=== PATIENT | male | born 1980 | race Caucasian/White ===

== ENCOUNTER 2020-09-07 19:02 | Emergency (ER) | payer SELFPAY ==
--- NOTE | 2020-09-07 19:27 | ER Document Report ---
ED Medical Screen (RME) - General Chief Complaint: Swallowed Foreign Body Stated Complaint: SWALLOWED FORIEGN BODY Time Seen by Provider: 09/07/20 19:24 Mode of Arrival: Ambulatory Information source: Patient Notes: HPI; 40-year-old presents to the emergency room stating that he was eating when his partial broke in half and he swallowed half of it. States the half that he swallowed the half that has the metal part that attaches to his partial. He is not having difficulty breathing or swallowing. No foreign body sensation in his throat. Handling his secretions. Talking in full sentences. PE: Alert and oriented x3. Lungs: Clear to auscultation without rales, rhonchi, wheezes. Heart: Regular rate rhythm without murmurs, rubs, gallops. I have greeted and performed a rapid initial assessment of this patient. A comprehensive ED assessment and evaluation of the patient, analysis of test results and completion of the medical decision making process will be conducted by additional ED providers. I have specifically instructed the patient or family members with the patient to immediately return to any nursing staff should anything change in the patient's condition or with their chief complaint. TRAVEL OUTSIDE OF THE [place] IN LAST 30 DAYS: No - Related Data Allergies/Adverse Reactions: No Known Allergies Allergy (Verified 11/28/15 21:54) Past Medical History Renal/ Medical History: Reports: Hx Kidney Stones - Immunizations Hx Diphtheria, Pertussis, Tetanus Vaccination: Yes Physical Exam - Vital signs Vitals: Temp Pulse Resp BP Pulse Ox 98.2 F 79 18 133/85 H 98 09/07/20 19:08 09/07/20 19:08 09/07/20 19:08 09/07/20 19:08 09/07/20 19:08 Course - Vital Signs Vital signs: Temp Pulse Resp BP Pulse Ox 98.2 F 79 18 133/85 H 98 09/07/20 19:08 09/07/20 19:08 09/07/20 19:08 09/07/20 19:08 09/07/20 19:08
--- NOTE | 2020-09-07 20:45 | RADIOLOGY REPORT (SQ) ---
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 TECHNIQUE: AP and lateral radiographs of the neck were obtained. FINDINGS: The visualized vertebral bodies appear well aligned. No significant prevertebral soft tissue swelling is seen. No gross abnormality is noted. No abnormal radiopaque densities are seen. The visualized apices are unremarkable. IMPRESSION: No significant prevertebral soft tissue swelling is seen.
--- NOTE | 2020-09-07 20:46 | RADIOLOGY REPORT (SQ) ---
EXAM DESCRIPTION: XR CHEST 2 VIEWS COMPLETED DATE/TME: 09/07/2020 20:09 CLINICAL HISTORY: 40 years, Male, Possible foreign body COMPARISON: None. NUMBER OF VIEWS: TECHNIQUE: LIMITATIONS: None. FINDINGS: There is a 26 x 1 mm metallic foreign body within the stomach. No evidence of pulmonary infiltrate or pleural effusion. The heart and mediastinum are unremarkable. Pulmonary vascularity appears normal. IMPRESSION: Metallic foreign body in the stomach. copyright 2010 [employer]- All Rights Reserved
--- NOTE | 2020-09-07 22:28 | ER Document Report ---
ED Foreign Body - General Chief Complaint: Swallowed Foreign Body Stated Complaint: SWALLOWED FORIEGN BODY Time Seen by Provider: 09/07/20 21:45 Primary Care Provider: PASCUAL RODRÍGUEZ MD [ACTIVE STAFF] - Follow up as needed Mode of Arrival: Ambulatory Information source: Patient Notes: Patient states that he was eating at 630 this evening and his upper broke. Patient states he swallowed a portion of his partial that has a metal hook on it. Patient denies any cough or choking. Patient denies any abdominal pain, nausea vomiting, patient denies any blood in the stool. Patient denies any complaints at this time. TRAVEL OUTSIDE OF THE [place] IN LAST 30 DAYS: No - HPI Location of foreign body: Abdomen Onset: This evening Onset/Duration: Sudden Quality of pain: No pain Context: denies: Self-inflicted Associated symptoms: None Exacerbated by: Denies Relieved by: Denies Similar symptoms previously: No Recently seen / treated by doctor: No - Related Data Allergies/Adverse Reactions: No Known Allergies Allergy (Verified 11/28/15 21:54) Past Medical History - General Information source: Patient - Social History Smoking Status: Never Smoker Frequency of alcohol use: None Drug Abuse: None Occupation: [employer] Lives with: Spouse/Significant other Family History: Reviewed & Not Pertinent Renal/ Medical History: Reports: Hx Kidney Stones Surgical Hx: Negative - Immunizations Hx Diphtheria, Pertussis, Tetanus Vaccination: Yes Hx Pneumococcal Vaccination: 10/03/00 Review of Systems - Review of Systems Constitutional: No symptoms reported. denies: Fever, Recent illness EENT: No symptoms reported. denies: Throat pain, Mouth pain Cardiovascular: No symptoms reported Respiratory: No symptoms reported. denies: Cough, Short of breath Gastrointestinal: No symptoms reported. denies: Abdominal pain, Nausea, Vomiting, Blood in vomit, Rectal bleeding Genitourinary: No symptoms reported Male Genitourinary: No symptoms reported Musculoskeletal: No symptoms reported Skin: No symptoms reported Hematologic/Lymphatic: No symptoms reported Neurological/Psychological: No symptoms reported Physical Exam - Vital signs Vitals: Temp Pulse Resp BP Pulse Ox 98.2 F 79 18 133/85 H 98 09/07/20 19:08 09/07/20 19:08 09/07/20 19:08 09/07/20 19:08 09/07/20 19:08 - Notes Notes: PHYSICAL EXAMINATION: GENERAL: Well-appearing and in no acute distress. HEAD: Atraumatic, normocephalic. EYES: sclera anicteric, conjunctiva are normal. ENT: nares patent. Moist mucous membranes. NECK: Normal range of motion, supple LUNGS: CTAB and equal. No wheezes rales or rhonchi. HEART: Regular rate and rhythm without murmurs ABDOMEN: Soft, nontender, normal bowel sounds, no guarding. EXTREMITIES: Normal range of motion, no pitting edema. BACK: No CVA tenderness PSYCH: Normal mood, normal affect. SKIN: Warm, Dry, normal turgor, no rashes or lesions noted Course - Re-evaluation Re-evalutation: 09/07/20 22:25 Patient with radiopaque foreign body noted in the stomach on x-ray. Patient without any symptoms at this time. Offered patient serial exams with the option of coming back in the next 1 to 2 days for repeat abdominal x-ray. Patient encouraged to return immediately for any abdominal pain, fever, vomiting, blood in stool or any concerning new symptoms. Patient given supplies so that he can monitor bowel movements for the foreign body. Patient advised that if he does not notice the foreign body within the next week he should follow up with a primary doctor or measurer for their management. Patient encouraged to return immediately for any concerns or issues. 09/07/20 22:26 - Vital Signs Vital signs: Temp Pulse Resp BP Pulse Ox 98 F 65 16 133/78 H 95 09/07/20 22:40 09/07/20 22:40 09/07/20 22:40 09/07/20 22:40 09/07/20 22:40 - Diagnostic Test Radiology reviewed: Image reviewed, Reports reviewed Discharge - Discharge Clinical Impression: Foreign body ingestion Qualifiers: Encounter type: initial encounter Qualified Code(s): T18.9XXA - Foreign body of alimentary tract, part unspecified, initial encounter Condition: Stable Disposition: HOME, SELF-CARE Instructions: Swallowed Foreign Body ([facility]) Additional Instructions: Return immediately for any new or worsening symptoms: Abdominal pain, fever, blood in stool, vomiting, or any concerning new symptoms Followup with your primary care provider, call tomorrow to make a followup appointment You may return in 1 to 2 days for repeat abdominal exam as well as repeat x-ray to monitor movement of the foreign body Follow-up with gastroenterology as needed Referrals: PASCUAL RODRÍGUEZ MD [ACTIVE STAFF] - Follow up as needed
[2020-09-07 22:41] VITALS: BP 133/78
== END 2020-09-07 22:42 | disposition home or self-care (01) ==
LOC: ER 19:02
DX: T18.2XXA Foreign body in stomach, initial encounter (principal); X58.XXXA Exposure to other specified factors, initial encounter; Y93.89 Activity, other specified
CPT/HCPCS: 70360; 71046; 99284